=== PATIENT | female | born 1985 | race Caucasian/White ===

== ENCOUNTER 2020-10-04 12:09 | Inpatient (IN) | payer OTHER ==
[~2020-10-04] VITALS: Ht 162.6 cm; Wt 115.2 kg
[2020-10-04 12:12] VITALS: BP 159/101
[2020-10-04 12:44] LABS: URINE BILIRUBIN NEGATIVE (Negative); URINE BLOOD NEGATIVE (Negative); URINE CLARITY CLEAR; URINE COLOR YELLOW; URINE GLUCOSE-RANDOM* NEGATIVE (Negative); URINE KETONES NEGATIVE (Negative); URINE LEUKOCYTES-REFLEX 2+ (Negative); URINE NITRITE-REFLEX NEGATIVE (Negative); URINE PROTEIN (DIPSTICK) NEGATIVE (Negative); URINE SPECIFIC GRAVITY 1.015 (1.005-1.035); URINE UROBILINOGEN 0.2 E.U./dl (0.2-1.0)
[2020-10-04 13:04] LABS: CASTS None Seen /LPF (None Seen); SQUAMOUS >10 Many /LPF (0-3)
[2020-10-04 13:05] LABS: BACTERIA-REFLEX >30 Many /HPF (None Seen); CRYSTALS None Seen /LPF (None Seen); URINE WBC-REFLEX 6-15 Few /HPF (0-5)
[2020-10-04 13:06] LABS: URINE RBC None Seen /HPF (0-2)
[2020-10-04 13:07] LABS: HEMATOCRIT 37.9 % (37.0-47.0); HEMOGLOBIN 12.7 gm/dL (12.0-15.0); MCH 29.5 pg (26.0-34.0); MCHC 33.4 g/dL (28.0-37.0); MCV 88.2 fL (80.0-100.0); RDW 12.8 % (10.5-14.5); WBC 15.3 thou/uL (4.0-11.0)
[2020-10-04 13:11] LABS: CALCIUM 10.2 mg/dL (8.5-10.1); CREATININE 0.9 mg/dL (0.6-1.0); POTASSIUM 4.1 mmol/L (3.5-5.1)
[2020-10-04 13:17] LABS: ALBUMIN 3.5 g/dL (3.4-5.0); TOTAL BILIRUBIN 0.3 mg/dL (0.2-1.0); TOTAL PROTEIN 8.3 g/dL (6.4-8.2)
[2020-10-04 13:31] LABS: ABSOLUTE NEUTROPHILS 11.9 thou/uL (1.4-8.2); ANISOCYTOSIS SLIGHT
[2020-10-04 14:36] LABS: PLATELET COUNT 306 thou/uL (150-400)
[2020-10-04 15:28] LABS: PROTIME 9.7 Seconds (9.3-11.4)
[2020-10-04 15:29] LABS: APTT 20.5 Seconds (24.5-32.8)
[2020-10-04 16:40] VITALS: BP 145/94
[2020-10-04 20:11] VITALS: BP 130/79
[2020-10-05] VITALS (7 sets, daily range): BP systolic 121–177; BP diastolic 83–111
[2020-10-05 06:32] LABS: HEMATOCRIT 36.1 % (37.0-47.0); MCH 29.4 pg (26.0-34.0); MCHC 33.3 g/dL (28.0-37.0); MCV 88.3 fL (80.0-100.0); RBC 4.09 mil/uL (4.20-5.00); RDW 13.1 % (10.5-14.5); WBC 8.2 thou/uL (4.0-11.0)
[2020-10-05 06:42] LABS: CALCIUM 9.5 mg/dL (8.5-10.1); CREATININE 0.9 mg/dL (0.6-1.0)
[2020-10-06 00:24] VITALS: BP 128/80
[2020-10-06 04:45] VITALS: BP 143/94
--- NOTE | 2020-10-06 07:35 | NUR ---
PATIENTS CARES WERE ASSUMED AT SHIFT CHANGE. PATIENT WAS ASSESSED AND MEDS WERE PASSED. PATIENT IS BRP'S ONLY DUE TO PE BILAT IN LUNGS. SHE HAS NO PAIN AND IS A PLEASENT LADY. NO REQUEST THIS SHIFT. PATIENT DID SLEEP MOST OF THIS SHIFT. THIS WAS AN UNEVENTFUL SHIFT FOR THIS LADY REPORT WAS GIVEN
[2020-10-06 08:15] VITALS: BP 147/92
[2020-10-06 08:25] VITALS: BP 147/92
[2020-10-06] MEDS ORDERED: XARELTO15 MG PO (09:28)
[2020-10-06] MEDS ORDERED: XARELTO20 MG PO (09:29)
[2020-10-06] MEDS ORDERED: CARVEDILOL12.5 MG PO (09:30)
[2020-10-06] MEDS ORDERED: KEFLEX500 M1 PO (09:30)
[2020-10-06 11:39] VITALS: BP 147/92
--- NOTE | 2020-10-06 13:57 | NUR ---
PT CARE ASSUMED AT 0700. ASSESSMENTS CHARTED. MEDICATIONS CHARTED. RAC IV. SINUS RHYTHM. TOILET. UP AD DHARA. PT DISCHARGED TO HOME. DISCHARGED PAPERWORK SIGNED. TELEMETRY D/C'D. IV D/C'D.
== END 2020-10-06 12:53 | disposition home or self-care (01) | DRG 871 ==
LOC: ER 12:09 → EROBS 15:49 → 2N 15:49
PROVIDERS: Emergency Medicine; ADMIT Hospitalist; ATTEND Hospitalist
DX: A41.9 Sepsis, unspecified organism (principal); I26.99 Other pulmonary embolism without acute cor pulmonale; J18.9 Pneumonia, unspecified organism; N39.0 Urinary tract infection, site not specified; I10 Essential (primary) hypertension; Z20.822 Contact with and (suspected) exposure to COVID-19; Z88.1 Allergy status to other antibiotic agents; Z88.0 Allergy status to penicillin
CPT/HCPCS: 10081

== ENCOUNTER 2021-02-23 18:34 | Emergency (ER) | payer OTHER ==
[~2021-02-23] VITALS: Ht 162.6 cm; Wt 127.0 kg
[~2021-02-23 18:34] MED LIST: CARVEDILOL12.5 MG PO; KEFLEX500 M1 PO; XARELTO15 MG PO; XARELTO20 MG PO
[2021-02-23] MEDS ORDERED: MATZIM LA180 MG PO (18:42)
[2021-02-23 20:49] LABS: HEMATOCRIT 36.9 % (37.0-47.0); HEMOGLOBIN 12.8 gm/dL (12.0-15.0); MCH 29.3 pg (26.0-34.0); MCHC 34.7 g/dL (28.0-37.0); MCV 84.4 fL (80.0-100.0); RBC 4.37 mil/uL (4.20-5.00); RDW 13.7 % (10.5-14.5); WBC 6.6 thou/uL (4.0-11.0)
[2021-02-23 20:58] LABS: CALCIUM 9.3 mg/dL (8.5-10.1); CREATININE 0.8 mg/dL (0.6-1.0); POTASSIUM 3.9 mmol/L (3.5-5.1)
[2021-02-23 21:04] LABS: ALBUMIN 3.8 g/dL (3.4-5.0); TOTAL BILIRUBIN 0.3 mg/dL (0.2-1.0)
[2021-02-23 21:59] VITALS: BP 157/89
--- NOTE | 2021-02-24 07:33 | EKG ---
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 : 1985 Requested By: Selina Fermin Order Number: [id number] MD: Herminio Decker Measurements Intervals [place] Rate: 87 P: 39 PA: 149 QRS: -8 QRSD: 83 T: 42 QT: 391 QTc: 471 Interpretive Statements Sinus rhythm Probable left atrial enlargement Left ventricular hypertrophy Anterior Q waves, possibly due to LVH No previous ECG available for comparison Electronically Signed On 02-24-2021 7:33:20 CDT by Herminio Decker [email or web address] <ELECTRONICALLY SIGNED> By: Herminio Decker MD, [facility] 02/24/21 0733 16 16 Herminio Decker MD, FACC /EPI
== END 2021-02-23 22:06 | disposition home or self-care (01) ==
LOC: ER 18:34
PROVIDERS: Nurse Practitioner Family
DX: I10 Essential (primary) hypertension (principal); Z86.711 Personal history of pulmonary embolism; Z79.899 Other long term (current) drug therapy; Z88.1 Allergy status to other antibiotic agents; Z88.0 Allergy status to penicillin

== ENCOUNTER 2021-03-26 13:08 | Emergency (ER) | payer OTHER ==
[~2021-03-26] VITALS: Ht 162.6 cm; Wt 127.0 kg
[~2021-03-26 13:08] MED LIST changes: +MATZIM LA180 MG PO
[2021-03-26] MEDS ORDERED: BYSTOLIC10 MG PO (13:23)
[2021-03-26] MEDS ORDERED: LORAZEPAM 0.50.5 MG PO (13:24)
[2021-03-26] MEDS ORDERED: DULOXETINE HCL60 MG PO (13:25)
[2021-03-26 16:06] VITALS: BP 137/77
== END 2021-03-26 16:06 | disposition home or self-care (01) ==
LOC: ER 13:08
DX: I80.8 Phlebitis and thrombophlebitis of other sites (principal); R11.0 Nausea; I10 Essential (primary) hypertension; Z86.711 Personal history of pulmonary embolism; Z88.0 Allergy status to penicillin; Z88.1 Allergy status to other antibiotic agents

== ENCOUNTER → 2021-04-03 | Outpatient (CLI) | payer OTHER ==
[~2021-04-03] MED LIST changes: +BYSTOLIC10 MG PO; +DULOXETINE HCL60 MG PO; +LORAZEPAM 0.50.5 MG PO
== END ==
LOC: SJCVCIMAG 08:59
PROVIDERS: ATTEND Internal Medicine
DX: I10 Essential (primary) hypertension (principal); R00.2 Palpitations; Z79.899 Other long term (current) drug therapy